=== PATIENT | female | born 1965 | race African-American/Black ===

== ENCOUNTER 2016-09-09 09:00 | Day surgery (SDC) | payer BC ==
--- NOTE | ~2016-09-09 | EGD ---
EGD REPORT [facility] [address] [place] [id number] NAME: MEE FISCHER : [birth year] STATUS : REG [facility]#: [id number] AGE: 51 ADM/REG DATE : 09/09/16 MR#: [id number] REPORT SERV DATE: 09/09/16 DICTATED BY: ROSALBA NAVARRO DATE: 09/09/16 REPORT STATUS : Draft [facility]: [facility] DATE: 09/09/16 [facility] Patient Name: Mee Fischer Date of : 1965 Attending MD: ROSALBA NAVARRO, Procedure Date No Time: 09/09/2016 Procedure: Colonoscopy Indications: Screening for colorectal malignant neoplasm, This is the patient's first colonoscopy Referring MD: LIS RIZO Medicines: Propofol per Anesthesia Complications: No immediate complications. Estimated blood loss: None. Procedure: Pre-Anesthesia Assessment: - ASA Grade Assessment: III - A patient with severe systemic disease. After I obtained informed consent, the scope was passed under direct vision. Throughout the procedure, the patient's blood pressure, pulse, and oxygen saturations were monitored continuously. The CF [id number] was introduced through the anus and advanced to the terminal ileum. The colonoscopy was performed with ease. The patient tolerated the procedure well. The quality of the bowel preparation was good. Findings: The perianal and digital rectal examinations were normal. The terminal ileum appeared normal. Non-bleeding internal hemorrhoids were found during retroflexion and were small and Grade I (internal hemorrhoids that do not prolapse). The exam was otherwise without abnormality. Impression: - The examined portion of the ileum was normal. - Non-bleeding internal hemorrhoids. - The examination was otherwise normal. Recommendation: - Patient has a contact number available for emergencies. The signs and symptoms of potential delayed complications were discussed with the patient. Return to normal activities tomorrow. Written discharge instructions were provided to the patient. - Regular diet. - Discharge patient to home (with escort). - Continue present medications. Procedure Code(s): --- Professional --- EGD REPORT [facility] [address] [place] [address] NAME: MEE FISCHER : [birth year] STATUS : REG [facility]#: [id number] AGE: 51 ADM/REG DATE : 09/09/16 MR#: [id number] REPORT SERV DATE: 09/09/16 DICTATED BY: ROSALBA NAVARRO DATE: 09/09/16 REPORT STATUS : Draft TRANSCRIBED BY: [employer] DATE: 09/09/16 [id number], Colorectal cancer screening; colonoscopy on individual not meeting criteria for high risk Diagnosis Code(s): --- Professional --- K64.0, First degree hemorrhoids Z12.11, Encounter for screening for malignant neoplasm of colon CPT copyright 2013 [employer]. All rights reserved. The codes documented in this report are preliminary and upon boilermaker central steam plant review may be revised to meet current compliance requirements. ROSALBA NAVARRO, 09/09/2016 11:53 AM This report has been signed electronically. Number of Addenda: 0 Note Initiated On: 09/09/2016 11:12 AM Scope Withdrawal Time 0 hours 6 minutes 2 seconds [id number] [place] [id number]
[~2016-09-09 09:00] MED LIST: ACET500CAP PO
== END 2016-09-09 23:59 | disposition home or self-care (01) ==
LOC: DMU 09:00
PROVIDERS: Internal Medicine Gastroenterology
PROC: 0DJD8ZZ Inspection of Lower Intestinal Tract, Via Natural or Artificial Opening Endoscopic (ICD-10-PCS; principal; 2016-09-09 11:00)
DX: Z12.11 Encounter for screening for malignant neoplasm of colon (principal); K64.0 First degree hemorrhoids; K44.9 Diaphragmatic hernia without obstruction or gangrene
CPT/HCPCS: 84703